=== PATIENT | male | born 1990 | race African-American/Black ===

== ENCOUNTER 2019-05-10 14:46 | Emergency (ER) | payer SELFPAY ==
[2019-05-10 15:24] LABS: ABSOLUTE EOSINOPHILS # (AUTO) 0.2 10^3/uL (0.0-0.6); ABSOLUTE LYMPHOCYTES (AUTO) 1.8 10^3/uL (0.5-4.7); ABSOLUTE MONOCYTES (AUTO) 0.4 10^3/uL (0.1-1.4); ABSOLUTE NEUT (AUTO) 3.2 10^3/uL (1.7-8.2); BASOPHILS % (AUTO) 0.6 % (0-2); EOSINOPHILS % (AUTO) 3.4 % (0-6); HEMATOCRIT 40.6 % (37.9-51.0); LYMPHOCYTES % (AUTO) 32.5 % (13-45); MEAN CORPUSCULAR HEMOGLOBIN 29.8 pg (27.0-33.4); MEAN CORPUSCULAR HGB CONC 34.5 g/dL (32.0-36.0); MEAN CORPUSCULAR VOLUME 87 fl (80-97); MONOCYTES % (AUTO) 6.2 % (3-13); PLATELET COUNT 189 10^3/uL (150-450); RED BLOOD COUNT 4.69 10^6/uL (4.35-5.55); RED CELL DISTRIBUTION WIDTH 13.9 % (11.5-14.0); SEGMENTED NEUTROPHILS % (AUTO) 57.3 % (42-78); TOTAL CELLS COUNTED % (AUTO) 100 %; WHITE BLOOD COUNT 5.6 10^3/uL (4.0-10.5)
[2019-05-10 15:44] LABS: ALBUMIN 4.5 g/dL (3.5-5.0); ALKALINE PHOSPHATASE 59 U/L (38-126); ANION GAP 13 (5-19); ASPARTATE AMINO TRANSFERASE 22 U/L (17-59); BLOOD UREA NITROGEN 10 mg/dL (7-20); CALCIUM 9.7 mg/dL (8.4-10.2); CARBON DIOXIDE 26 mmol/L (22-30); CHLORIDE 101 mmol/L (98-107); GLUCOSE 113 mg/dL (75-110)
[2019-05-10 15:46] LABS: ALCOHOL < 10 mg/dL (NONE DETECTED)
[2019-05-10 19:01] LABS: APPEARANCE,URINE SLIGHTLY-CLOUDY; BILIRUBIN,URINE NEGATIVE (NEGATIVE); COLOR,URINE YELLOW; GLUCOSE, URINE NEGATIVE (NEGATIVE); KETONES,URINE NEGATIVE (NEGATIVE); LEUKOCYTE ESTERASE,URINE NEGATIVE (NEGATIVE); NITRITE,URINE NEGATIVE (NEGATIVE); PROTEIN,URINE 30 mg/dL (NEGATIVE)
[2019-05-10 19:18] LABS: URINE BARBITURATES SCREEN NEGATIVE; URINE METHADONE SCREEN NEGATIVE; URINE PHENCYCLIDINE SCREEN NEGATIVE
[2019-05-10 19:32] LABS: URINE COCAINE SCREEN UNCONFIRMED POSITIVE
[2019-05-10 19:33] LABS: URINE BENZODIAZEPINES SCREEN UNCONFIRMED POSITIVE; URINE MARIJUANA (THC) SCREEN UNCONFIRMED POSITIVE
--- NOTE | 2019-05-10 19:55 | ER Document Report ---
ED General - General Chief Complaint: Probable Seizure Stated Complaint: ERATIC BEHAVIOR Time Seen by Provider: 05/10/19 19:39 Mode of Arrival: Medic Information source: Patient, Relative - HPI Onset: Just prior to arrival Onset/Duration: Sudden Quality of pain: No pain Severity: Moderate Pain Level: Denies Associated symptoms: Other - confusion, possible seizure vs syncope Exacerbated by: Denies Relieved by: Denies Similar symptoms previously: No Recently seen / treated by doctor: No Notes: 28 year old male with no known PMH brought in by EMS for concern of a seizure vs syncope. The patient apparently was outside and then passed out. It is not clear to me when speaking with him and his family if anyone witness any true seizure like activity. The patient denies biting his tongue or incontinence. The patient says this has never happened to him before and he does not recall the events. The patient does not deny that he has used drugs recently but he will not tell me which ones. - Related Data Allergies/Adverse Reactions: No Known Allergies Allergy (Verified 07/04/12 18:33) Past Medical History - General Information source: Patient, Relative - Social History Smoking Status: Current Every Day Smoker Frequency of alcohol use: Occasional Drug Abuse: Cocaine, Marijuana, Methamphetamine, Prescription drugs Family History: Reviewed & Not Pertinent Patient has suicidal ideation: No Patient has homicidal ideation: No - Past Medical History Cardiac Medical History: Reports: None Pulmonary Medical History: Reports: None EENT Medical History: Reports: None Neurological Medical History: Reports: None Endocrine Medical History: Reports: None Renal/ Medical History: Reports: None Malignancy Medical History: Reports None GI Medical History: Reports: None Musculoskeletal Medical History: Reports None Skin Medical History: Reports None Psychiatric Medical History: Reports: None Traumatic Medical History: Reports: None Infectious Medical History: Reports: None - Immunizations Immunizations up to date: Yes Hx Diphtheria, Pertussis, Tetanus Vaccination: Yes Review of Systems - Review of Systems Constitutional: No symptoms reported EENT: No symptoms reported Cardiovascular: No symptoms reported Respiratory: No symptoms reported Gastrointestinal: No symptoms reported Genitourinary: No symptoms reported Male Genitourinary: No symptoms reported Musculoskeletal: No symptoms reported Skin: No symptoms reported Hematologic/Lymphatic: No symptoms reported Neurological/Psychological: Confusion, Other - syncope, possible seizure Physical Exam - Vital signs Vitals: Temp Resp Pulse Ox 98.3 F 13 94 05/10/19 15:08 05/10/19 15:08 05/10/19 15:08 - Notes Notes: GENERAL: Well-appearing, well-nourished and in no acute distress. HEAD: Atraumatic, normocephalic. EYES: Pupils equal round and reactive to light, extraocular movements intact, sclera anicteric, conjunctiva are normal. ENT: TMs normal, nares patent, oropharynx clear without exudates. Moist mucous membranes. NECK: Normal range of motion, supple without lymphadenopathy or JVD. LUNGS: Breath sounds clear to auscultation bilaterally and equal. No wheezes rales or rhonchi. HEART: Regular rate and rhythm without murmurs, rubs or gallops. ABDOMEN: Soft, nontender, normoactive bowel sounds. No guarding, no rebound. No masses appreciated. EXTREMITIES: Normal range of motion, no pitting or edema. No clubbing or cyanosis. NEUROLOGICAL: Cranial nerves II through XII grossly intact. Normal speech, normal gait. PSYCH: Normal mood, normal affect. SKIN: Warm, Dry, normal turgor, no rashes or lesions noted. Course - Re-evaluation Re-evalutation: 05/10/19 20:00 The patient apparently had a syncopal event vs a seizure although it does not sound like anyone saw any true seizure like activity. The patient tested positive for Cocaine, Opiates, Benzos, THC. It is very possible the patient had a reaction to one of these substances. That being said, he does have a family history of seizures so will have him follow up with Neurology for an outpatient EEG. 05/10/19 20:43 CT of head shows no acute process. - Vital Signs Vital signs: Temp Pulse Resp BP Pulse Ox 99.4 F 87 14 140/86 H 100 05/10/19 20:02 05/10/19 20:02 05/10/19 20:02 05/10/19 20:02 05/10/19 20:02 - Laboratory Result Diagrams: 05/10/19 15:05 05/10/19 15:05 Laboratory results interpreted by me: 05/10/19 05/10/19 15:05 18:34 Glucose 113 H Magnesium 2.4 H Urine Protein 30 H Urine Urobilinogen 2.0 H Urine Ascorbic Acid 40 H Discharge - Discharge Clinical Impression: Seizure-like activity, Cocaine abuse, Marijuana abuse, Opiate abuse, episodic Condition: Stable Disposition: HOME, SELF-CARE Instructions: Cocaine Abuse ([facility]), Drug Toxicity ([facility]), New Seizure ([facility]) Additional Instructions: Stop using drugs of any kind as they can cause seizures. Follow up with a Neurologist for an outpatient EEG to evaluate for seizure like activity. Tell the Neurologist you follow up with you were in the ER and had normal blood work and a normal head CT scan with no cause found for possible seizure like activity.
--- NOTE | 2019-05-10 20:42 | RADIOLOGY REPORT (SQ) ---
EXAM DESCRIPTION: CT HEAD WITHOUT IV CONTRAST COMPLETED DATE/TME: 05/10/2019 19:49 CLINICAL HISTORY: 28 years, Male, eval for cause of possible seizure COMPARISON: None. TECHNIQUE: Images stored on PACS. All CT scanners at this facility use dose modulation, iterative reconstruction, and/or weight based dosing when appropriate to reduce radiation dose to as low as reasonably achievable (ALARA). [facility]: Dose Right [facility]: CareDose [facility]: Dose Right [facility]: Teradose 4D [facility]: [employer] LIMITATIONS: None. FINDINGS: Long-white differentiation is normal. Ventricles and extra cerebral spaces are within normal limits for age. No evidence of mass lesion, mass effect, or intracranial hemorrhage. Mild mucosal thickening within the maxillary sinuses. Mastoid air cells are clear. Orbits and eyeballs are unremarkable IMPRESSION: Unremarkable examination. The cause of the patient's seizure is not identified on this examination. TECHNICAL DOCUMENTATION: Quality ID # [id number]: Final reports with documentation of one or more dose reduction techniques (e.g., Automated exposure control, adjustment of the mA and/or kV according to patient size, use of iterative reconstruction technique) copyright 2011 [employer]- All Rights Reserved
[2019-05-10 22:16] VITALS: BP 133/78
--- NOTE | 2019-05-11 09:15 | EKG REPORT ---
SEVERITY:- ABNORMAL ECG - SINUS RHYTM ARTIFACTS : Confirmed by: Rosa Cowart 11-May-2019 09:14:31
== END 2019-05-10 22:16 | disposition home or self-care (01) ==
LOC: ER 14:46
DX: R41.0 Disorientation, unspecified (principal); F14.10 Cocaine abuse, uncomplicated; F12.10 Cannabis abuse, uncomplicated; F15.10 Other stimulant abuse, uncomplicated; F19.10 Other psychoactive substance abuse, uncomplicated; F17.200 Nicotine dependence, unspecified, uncomplicated
CPT/HCPCS: 36415; 70450; 80053; 80307; 81001; 83735; 85025; 93005; 93010; 99284